=== PATIENT | male | born 1995 | race African-American/Black ===

== ENCOUNTER 2022-03-02 01:24 | Emergency (ER) | payer MEDICAID ==
[~2022-03-02] VITALS: Ht 182.9 cm; Wt 73.0 kg
[2022-03-02] MEDS ORDERED: SODIUM CHLORIDE 0.9% 1,000 ML IV ONE (02:15)
[2022-03-02 02:55] LABS: BASOPHILS % 0.7 % (0.0-2.0); EOSINOPHILS % 0.1 % (0.0-5.0); HEMOGLOBIN. 14.4 g/dL (14.0-18.0); LYMPHOCYTES % 13.8 % (20.0-50.0); MEAN CORPUSCULAR HEMOGLOBIN 29.2 pg (28.0-32.0); MEAN CORPUSCULAR VOLUME 89.1 fL (80.0-94.0); MEAN PLATELET VOLUME 10.6 fl (7.4-10.4); MONOCYTES % 9.9 % (2.0-8.0); NEUTROPHILS % 75.5 % (40.0-76.0); PLATELET 137 x1000/uL (130-400); RED BLOOD CELL COUNT 4.94 mill/uL (4.7-6.1); RED CELL DISTRIBUTION WIDTH 13.6 % (11.6-14.6)
[2022-03-02 03:01] LABS: CHLORIDE 103 mEq/L (98-107)
[2022-03-02 04:00] VITALS: BP 133/95
== END 2022-03-02 05:30 ==
LOC: EDBD 01:40 → ER 01:40
DX: R45.1 Restlessness and agitation (principal)
CPT/HCPCS: 36415; 80053; 85025; 93005; 96360; 99284; J7030; Z7610

== ENCOUNTER 2022-03-27 17:23 | Emergency (ER) | payer MEDICAID, OTHER ==
[~2022-03-27] VITALS: Ht 177.8 cm; Wt 73.0 kg
[2022-03-27 17:46] VITALS: BP 140/82
[2022-03-27] MEDS ORDERED: SODIUM CHLORIDE 0.9% 1,000 ML IV ONE (18:30)
[2022-03-27] MEDS ORDERED: LORAZEPAM 2MG/ML CPJ IV ONE (18:30)
[2022-03-27] MEDS ORDERED: ASPIRIN 81MG TABLET PO ONE (18:30)
[2022-03-27] MEDS ORDERED: NITROGLYCERIN 0.4MG TABLET SL SL PRN (19:15)
== END 2022-03-27 19:30 | disposition left against medical advice (07) ==
LOC: ER 17:23
DX: R07.89 Other chest pain (principal); M79.18 Myalgia, other site; R00.0 Tachycardia, unspecified; R46.2 Strange and inexplicable behavior; R03.0 Elevated blood-pressure reading, without diagnosis of hypertension; F12.90 Cannabis use, unspecified, uncomplicated; F17.210 Nicotine dependence, cigarettes, uncomplicated
CPT/HCPCS: 71045; 93005; 99283; J7030

== ENCOUNTER 2022-03-27 20:02 | Emergency (ER) | payer MEDICAID | END 2022-03-27 21:58 | disposition left against medical advice (07) | LOC: ER 20:02 | DX: Z53.21 Procedure and treatment not carried out due to patient leaving prior to being seen by health care provider (principal) ==

== ENCOUNTER 2022-03-28 08:58 | Emergency (ER) | payer MEDICAID ==
[~2022-03-28] VITALS: Ht 177.8 cm; Wt 73.0 kg
[2022-03-28 09:12] VITALS: BP 154/89
[2022-03-28] MEDS ORDERED: MAGNESIUM/ALUMINUM HYDROXIDE/SIMETHICONE 30ML UDC PO STA (10:26)
[2022-03-28] MEDS ORDERED: VISCOUS LIDOCAINE 2% 15 ML UDC PO STA (10:26)
== END 2022-03-28 10:58 | disposition left against medical advice (07) ==
LOC: ER 09:06
DX: R07.89 Other chest pain (principal); R10.9 Unspecified abdominal pain
CPT/HCPCS: 93005; 99283

== ENCOUNTER 2022-03-28 17:49 | Emergency (ER) | payer MEDICAID ==
[~2022-03-28] VITALS: Ht 170.2 cm; Wt 56.0 kg
[2022-03-28 19:45] VITALS: BP 127/92
== END 2022-03-28 19:53 ==
LOC: ER 17:49
DX: R10.9 Unspecified abdominal pain (principal); F12.10 Cannabis abuse, uncomplicated
CPT/HCPCS: 99281

== ENCOUNTER 2022-03-29 12:48 | Emergency (ER) | payer MEDICAID ==
[~2022-03-29] VITALS: Ht 177.8 cm; Wt 80.0 kg
[2022-03-29] MEDS ORDERED: OLANZAPINE 10 MG/VIAL IM ONE (15:45)
[2022-03-29] MEDS ORDERED: SODIUM CHLORIDE 0.9% 1,000 ML IV ONE (15:45)
[2022-03-29] MEDS ORDERED: LORAZEPAM 2MG/ML CPJ IV ONE (15:45)
[2022-03-29 16:30] LABS: BASOPHILS % 0.5 % (0.0-2.0); EOSINOPHILS % 0.5 % (0.0-5.0); HEMATOCRIT. 39.6 % (42.0-52.0); HEMOGLOBIN. 12.8 g/dL (14.0-18.0); LYMPHOCYTES % 25.8 % (20.0-50.0); MEAN CORPUSCULAR HEMOGLOBIN 29.4 pg (28.0-32.0); MEAN CORPUSCULAR VOLUME 90.7 fL (80.0-94.0); MEAN PLATELET VOLUME 10.5 fl (7.4-10.4); MONOCYTES % 11.4 % (2.0-8.0); NEUTROPHILS % 61.8 % (40.0-76.0); PLATELET 140 x1000/uL (130-400); RED BLOOD CELL COUNT 4.36 mill/uL (4.7-6.1); RED CELL DISTRIBUTION WIDTH 12.8 % (11.6-14.6)
[2022-03-29 16:51] LABS: CHLORIDE 108 mEq/L (98-107)
[2022-03-29 16:59] LABS: ETHANOL BLOOD < 10 mg/dL
[2022-03-30] MEDS ORDERED: RISPERIDONE 1MG TABLET PO SCH (12:00)
[2022-03-30] MEDS ORDERED: DIVALPROEX SODIUM 250MG DR TABLET PO SCH (12:00)
[2022-03-30] MEDS ORDERED: OLANZAPINE 10 MG/VIAL IM ONE (12:00)
[2022-03-30] MEDS ORDERED: OLANZAPINE 10 MG/VIAL IM NR (14:21)
[2022-03-30] MEDS ORDERED: LORAZEPAM 2MG/ML CPJ IM ONE (18:15)
[2022-03-31] MEDS ORDERED: RISPERIDONE 1MG TABLET PO SCH (07:30)
[2022-03-31] MEDS ORDERED: DIVALPROEX SODIUM 250MG DR TABLET PO SCH (07:30)
[2022-03-31] MEDS: MIRTAZAPINE 15MG TABLET PO SCH ×2 (10:22→21:23)
[2022-03-31] MEDS: DIVALPROEX SODIUM 500MG DR TABLET PO SCH (10:22)
[2022-03-31] MEDS ORDERED: LORAZEPAM 1MG TABLET PO ONE (11:15)
[2022-03-31] MEDS: RISPERIDONE 1MG TABLET PO SCH ×2 (11:15→21:22)
[2022-03-31] MEDS ORDERED: OLANZAPINE 10 MG/VIAL IM ONE (11:45)
[2022-04-01] MEDS: DIVALPROEX SODIUM 500MG DR TABLET PO SCH (08:55)
[2022-04-01] MEDS: RISPERIDONE 1MG TABLET PO SCH (08:56)
[2022-04-01] MEDS ORDERED: LORAZEPAM 2MG/ML CPJ IM ONE (12:15)
[2022-04-01] MEDS ORDERED: HALOPERIDOL LACTATE 5MG/ML VIAL IM ONE (12:15)
[2022-04-01] MEDS ORDERED: OLANZAPINE 10MG TABLET PO SCH (12:30)
[2022-04-01 12:35] VITALS: BP 111/81
== END 2022-04-01 12:35 | disposition home or self-care (01) ==
LOC: ER 12:55
DX: F20.9 Schizophrenia, unspecified (principal); I49.9 Cardiac arrhythmia, unspecified; Z20.822 Contact with and (suspected) exposure to COVID-19
CPT/HCPCS: 36415; 80053; 80307; 80320; 80329; 82962; 85025; 93005; 96361; 96372; 96374; 99285; C9803; J2060; J3490; J7030; U0003; U0005; G0480

== ENCOUNTER 2022-04-09 10:50 | Emergency (ER) | payer MEDICAID ==
[~2022-04-09] VITALS: Ht 177.8 cm; Wt 78.0 kg
[2022-04-09] MEDS ORDERED: LORAZEPAM 2MG/ML CPJ IM NR (12:30)
[2022-04-09] MEDS ORDERED: HALOPERIDOL LACTATE 5MG/ML VIAL IM NR (12:30)
[2022-04-09 13:18] LABS: BASOPHILS % 0.9 % (0.0-2.0); EOSINOPHILS % 1.2 % (0.0-5.0); HEMATOCRIT. 41.8 % (42.0-52.0); HEMOGLOBIN. 13.7 g/dL (14.0-18.0); LYMPHOCYTES % 28.6 % (20.0-50.0); MEAN CORPUSCULAR HEMOGLOBIN 29.3 pg (28.0-32.0); MEAN CORPUSCULAR VOLUME 89.6 fL (80.0-94.0); MEAN PLATELET VOLUME 9.9 fl (7.4-10.4); MONOCYTES % 10.7 % (2.0-8.0); NEUTROPHILS % 58.6 % (40.0-76.0); PLATELET 210 x1000/uL (130-400); RED BLOOD CELL COUNT 4.66 mill/uL (4.7-6.1); RED CELL DISTRIBUTION WIDTH 13.2 % (11.6-14.6)
[2022-04-09 13:20] LABS: CHLORIDE 102 mEq/L (98-107)
[2022-04-09 13:28] LABS: ETHANOL BLOOD < 10 mg/dL
[2022-04-09 14:40] LABS: CLARITY URINE CLOUDY (CLEAR); COLOR URINE DARK YELLOW (YELLOW); KETONES URINE TRACE (NEGATIVE); LEUKOCYTE ESTERASE URINE 2+ (NEGATIVE); NITRITE URINE NEGATIVE (NEGATIVE); OCCULT BLOOD URINE 2+ (NEGATIVE); PROTEIN URINE 1+ (NEGATIVE); SPECIFIC GRAVITY URINE 1.035 (1.005-1.030)
[2022-04-09 15:06] LABS: *AMPHETAMINES SCREEN URINE PRESUMTIVE POSITIVE (NEGATIVE); *BARBITURATES SCREEN URINE NEGATIVE (NEGATIVE); *BENZODIAZEPINES SCREEN URINE NEGATIVE (NEGATIVE); *COCAINE SCREEN URINE NEGATIVE (NEGATIVE); CANNABINOID URINE SCREEN PRESUMTIVE POSITIVE (NEGATIVE); METHADONE URINE SCREEN NEGATIVE (NEGATIVE); OPIATES URINE SCREEN NEGATIVE (NEGATIVE); PHENCYCLIDINE URINE SCREEN NEGATIVE (NEGATIVE)
[2022-04-09] MEDS ORDERED: CEFP200T13 MT (15:54)
[2022-04-09] MEDS ORDERED: CEFTRIAXONE 1 G PREMIX 50 ML IV ONE (16:00)
[2022-04-09] MEDS ORDERED: CEFTRIAXONE SODIUM 1 G/VIAL IM NR (17:15)
[2022-04-10 10:51] VITALS: BP 121/61
== END 2022-04-10 10:54 | disposition home or self-care (01) ==
LOC: ER 10:50
DX: R45.851 Suicidal ideations (principal); F15.151 Other stimulant abuse with stimulant-induced psychotic disorder with hallucinations; R45.6 Violent behavior; N39.0 Urinary tract infection, site not specified; R45.1 Restlessness and agitation; R51.9 Headache, unspecified; F20.9 Schizophrenia, unspecified; F31.9 Bipolar disorder, unspecified; F12.10 Cannabis abuse, uncomplicated; Z78.1 Physical restraint status
CPT/HCPCS: 36415; 80053; 80305; 80307; 80320; 80329; 81003; 85025; 87086; 96372; 99291; J0696; J1630; J2060; G0480